=== PATIENT | male | born 1945 | race Caucasian/White ===

== ENCOUNTER 2019-11-23 15:54 | Outpatient (CLI) | payer MEDICARE | END 2019-11-23 15:55 | disposition home or self-care (01) | LOC: COV 15:54 | PROVIDERS: ATTEND Family Medicine | DX: R05 Cough (principal); R50.9 Fever, unspecified | CPT/HCPCS: 81599; U0002 ==

== ENCOUNTER 2021-06-12 16:00 | Outpatient (CLI) | payer MEDICARE ==
--- NOTE | 2021-06-12 14:16 | XRAY Report ---
PROCEDURE: Shoulder 3 View RT INDICATIONS: RIGHT SHOULDER PAIN TECHNIQUE: 4 views of the shoulder were acquired. COMPARISON: None. FINDINGS: No acute fracture. Mild to moderate AC joint degeneration. Severe glenohumeral degenerative joint dis ease with [id number] appearance. Scattered subchondral sclerosis and spurring. There is anatomic a lignment. IMPRESSION: Severe right shoulder joint degeneration as above. Reviewed by: Cristofer Martínez MD on 06/12/2021 2:15 PM PDT Approved by: Cristofer Martínez MD on 06/12/2021 2:15 PM PDT Station ID: [id number]
== END 2021-06-12 16:01 | disposition home or self-care (01) ==
LOC: DI.N 16:00
PROVIDERS: ATTEND Physician Assistant
DX: M19.011 Primary osteoarthritis, right shoulder (principal)